=== PATIENT | female | born 1940 | race Caucasian/White ===

== ENCOUNTER 2020-07-24 21:05 | Emergency (ER) | payer OTHER, SELFPAY ==
[2020-07-24] VITALS (14 sets, daily range): BP systolic 132–204; BP diastolic 60–93; PULSE 60–63; RESP 15–24; TEMP 36.7; O2SAT 95–98; BMI 25.0
--- NOTE | 2020-07-24 21:02 | DI.RAD.S_ITS ---
PROCEDURE: XR CHEST 1V INDICATIONS: Chest pain TECHNIQUE: One view of the chest was acquired. COMPARISON: None. FINDINGS: Surgical changes and devices: 2 lead cardiac pacing device with leads in appropriate position.. Lungs and pleura: Lungs are clear. No pleural effusions or pneumothorax. Mediastinum: Mediastinal contours appear normal. Heart size is normal. Bones and chest wall: No suspicious bony lesions. Overlying soft tissues appear unremarkable. IMPRESSION: No acute finding. Dictated by: Bob Rao M.D. on 07/24/2020 at 21:45 Approved by: Bob Rao M.D. on 07/24/2020 at 21:46
--- NOTE | 2020-07-24 21:29 | ED_ITS ---
HPI - Chest Pain General Chief Complaint: Chest Pain Stated Complaint: CP Source: patient Mode of arrival: EMS Limitations: no limitations History of Present Illness HPI narrative: Patient experience 3 hours ago epigastric and substernal chest pressure. No nausea or vomiting no dyspnea no sweating. No numbness tingling weakness no back pain no syncope. EMS arrived. Patient already took aspirin prior to arrival. Has not had her metoprolol 37.5 mg yet. Her evening dose. Patient did have complete resolution of chest pressure after EMS gave nitroglycerin sublingual. Patient sees Dr. Billy, cardiology with [place] for bradycardia. Patient has pacemaker. No previous heart catheterization or stress test in the past. Related Data Home Medications Medication Instructions Recorded Confirmed aspirin mg PO HS #0 03/19/17 VITAMIN D (Vitamin D3) 2,000 iu PO QDAY #0 12/18/17 cyanocobalamin (vitamin B-12) 1,000 mcg PO QDAY #0 12/18/17 [Vitamin B-12] famotidine 20 mg PO QDAYP PRN #0 12/18/17 metoprolol tartrate 25 mg PO BID #0 12/18/17 Allergies Allergy/AdvReac Type Severity Reaction Status Date / Time No Known Drug Allergies Allergy Verified 07/24/20 21:14 Review of Systems Review of Systems Narrative: GENERAL: Denies chills, fatigue, malaise, fever, sweats. HEENT: Denies sinus pain, ear pain, sore throat, difficulty swallowing, dizziness. RESPIRATORY: Denies dyspnea, cough, wheezing, hemoptysis, sputum. CARDIOVASCULAR: Complains of chest pain, denies palpitations, orthopnea, edema, GASTROINTESTINAL: Denies nausea, vomiting, abdominal pain, diarrhea, constipation, melena. : Denies dysuria, frequency, incontinence, hematuria, urinary retention. MUSCULOSKELETAL: denies weakness, joint pain, or bony pain SKIN: Denies rash, skin lesions NEUROLOGIC: Denies weakness, headache, numbness, change in speech, confusion, seizures, incoordination. PSYCHIATRIC: No concerning psychosocial issues. ROS Unobtainable: All systems reviewed & are unremarkable except as noted in HPI and below Patient History Social History Smoking Status: Unknown if ever smoked Smoking Status: Unknown if ever smoked alcohol intake frequency: holidays/special occasions only Substance Use Type: does not use Exam Narrative Exam Narrative: GENERAL: patient appears stated age. Well-nourished, well- developed patient, in no distress, not toxic HEAD: Atraumatic. Normocephalic. EYES: Pupils equal round and reactive. Extraocular motions intact. No scleral icterus. No injection or drainage. ENT: Nose without bleeding, purulent drainage. Throat without erythema, tonsillar hypertrophy or exudate. Airway patent. NECK: Trachea midline. Non tender CARDIOVASCULAR: Regular rate and rhythm without murmurs, gallops, or rubs. RESPIRATORY: Clear to auscultation. Breath sounds equal bilaterally. No wheezes, rales, or rhonchi. GASTROINTESTINAL: Abdomen soft, non-tender, nondistended. EXTREMITIES: No edema or joint tenderness. BACK: Nontender without deformity or crepitance. No flank tenderness. NEURO: AOx4. SKIN: No rash or erythema of visible areas PSYCH: Not anxious, is cooperative Initial Vital Signs Initial Vital Signs: Vital Signs Temperature 98.0 F 07/24/20 21:10 Pulse Rate 60 07/24/20 21:10 Respiratory Rate 20 07/24/20 21:10 Blood Pressure 204/93 H 07/24/20 21:10 Pulse Oximetry 97 07/24/20 21:10 Course Orders Ordered: ED Orders 07/24/20 21:02 XR chest 1V Stat EKG-12 Lead Stat 07/24/20 21:16 Complete Blood Count AUTO DIFF Stat Comprehensive Metabolic Panel Stat Lipase Stat Partial Thromboplastin Time Stat Prothrombin Time INR Stat Troponin & CK Cardiac Panel Stat 07/24/20 23:05 COVID19 -ED/INPAT/OR/L&D Stat Discontinued Medications Metoprolol Succinate (Toprol Xl) 25 mg PO NOW ONE Stop: 07/24/20 21:30 Last Admin: 07/24/20 21:47 Dose: 25 mg Documented by: LEILA Reevaluation(s) Reevaluation #1: Continues to be chest pain free. Blood pressure improved. 132/60 Time: 00:12 Consultations Consultation #1: Spoke with Dr. Sanchez, cardiology on-call for Dr. Billy, patient to be transferred to [facility]. Time: 10:45 Consultation #2: Spoke with Dr. Watkins, will accept patient Time: 11:31 Vital Signs Vital signs: Vital Signs - 8 hr 07/24/20 21:10 07/24/20 21:16 07/24/20 21:18 Temperature 98.0 F Pulse Rate 60 61 Respiratory Rate 20 18 21 Blood Pressure 204/93 H 204/93 H Pulse Oximetry 97 98 07/24/20 21:22 07/24/20 21:30 07/24/20 21:31 Temperature Pulse Rate 60 60 60 Respiratory Rate 24 16 16 Blood Pressure 187/79 H 183/82 H Pulse Oximetry 96 97 97 07/24/20 21:47 07/24/20 22:00 07/24/20 22:01 Temperature Pulse Rate 60 60 60 Respiratory Rate 15 15 Blood Pressure 183/82 H 149/68 H Pulse Oximetry 96 07/24/20 22:30 07/24/20 22:35 07/24/20 23:00 Temperature Pulse Rate 60 60 60 Respiratory Rate 15 16 Blood Pressure 142/64 H 142/64 H 152/69 H Pulse Oximetry 95 97 07/24/20 23:30 07/24/20 23:31 07/25/20 00:00 Temperature Pulse Rate 60 63 61 Respiratory Rate 16 18 21 Blood Pressure 132/60 141/63 H Pulse Oximetry 96 96 96 MDM - Chest Pain Lab Data Attestation: I reviewed the patient's lab results. Result diagrams: 07/24/20 21:16 07/24/20 21:16 Labs: Lab Results 07/24/20 07/24/20 07/24/20 Range/Units 21:16 21:16 21:16 WBC 9.3 (4.5-11.0) X10^3/uL RBC 4.80 (4.0-5.2) X10^6/uL Hgb 13.4 (12.0-16.0) g/dL Hct 41.0 (36-46) % MCV 85.4 (80-100) fL MCH 27.9 (26-34) PG MCHC 32.7 (30-36) % RDW 13.7 (11.6-14.8) % Plt Count 291 (150-400) X10^3/uL Neut % (Auto) 75.6 H (50-75) % Lymph % (Auto) 16.8 L (25-40) % [place] % (Auto) 6.1 (3-14) % Eos % (Auto) 1.1 L (2-4) % Baso % (Auto) 0.4 (0-2) % Neut # (Auto) 7000 (6310-7332) /uL Lymph # (Auto) 1600 (3110-6043) /uL [place] # (Auto) 600 (0-900) /uL Eos # (Auto) 100 (0-450) /uL Baso # (Auto) 0 (0-100) /uL PT 11.0 (10.1-12.7) SECONDS INR 1.0 (0.9-1.3) APTT 28 (26.4-36.2) SECONDS Sodium 138 (137-145) mmol/L Potassium 4.1 (3.4-5.1) mmol/L Chloride 101 (98-107) mmol/L Carbon Dioxide 29 (22-32) mmol/L BUN 20 H (7-17) mg/dL Creatinine 1.23 H (0.52-1.04) mg/dL Estimated GFR 42.2 L (>60) mL/min BUN/Creatinine Ratio 16.3 (6-22) Glucose 121 H (80-110) mg/dL Calcium 9.7 (8.4-10.2) mg/dL Total Bilirubin 0.4 (0.2-1.3) mg/dL AST 19 (14-36) IU/L ALT 13 (<35) IU/L Alkaline Phosphatase 84 (38-126) U/L Total Creatine Kinase 59 (30-135) U/L CK-MB (CK-2) TNP CK-MB (CK-2) Rel Index TNP Troponin I < 0.012 (0.01-0.034) ng/mL Total Protein 7.5 (6.3-8.2) g/dL Albumin 4.3 (3.5-5.0) g/dL Globulin 3.2 (1.7-4.1) g/dL Albumin/Globulin Ratio 1.3 (1.0-2.8) Lipase 65 (23-300) U/L COVID-19 PCR (Negative) 07/24/20 Range/Units 23:05 WBC (4.5-11.0) X10^3/uL RBC (4.0-5.2) X10^6/uL Hgb (12.0-16.0) g/dL Hct (36-46) % MCV (80-100) fL MCH (26-34) PG MCHC (30-36) % RDW (11.6-14.8) % Plt Count (150-400) X10^3/uL Neut % (Auto) (50-75) % Lymph % (Auto) (25-40) % [place] % (Auto) (3-14) % Eos % (Auto) (2-4) % Baso % (Auto) (0-2) % Neut # (Auto) (6667-1678) /uL Lymph # (Auto) (3021-7907) /uL [place] # (Auto) (0-900) /uL Eos # (Auto) (0-450) /uL Baso # (Auto) (0-100) /uL PT (10.1-12.7) SECONDS INR (0.9-1.3) APTT (26.4-36.2) SECONDS Sodium (137-145) mmol/L Potassium (3.4-5.1) mmol/L Chloride (98-107) mmol/L Carbon Dioxide (22-32) mmol/L BUN (7-17) mg/dL Creatinine (0.52-1.04) mg/dL Estimated GFR (>60) mL/min BUN/Creatinine Ratio (6-22) Glucose (80-110) mg/dL Calcium (8.4-10.2) mg/dL Total Bilirubin (0.2-1.3) mg/dL AST (14-36) IU/L ALT (<35) IU/L Alkaline Phosphatase (38-126) U/L Total Creatine Kinase (30-135) U/L CK-MB (CK-2) CK-MB (CK-2) Rel Index Troponin I (0.01-0.034) ng/mL Total Protein (6.3-8.2) g/dL Albumin (3.5-5.0) g/dL Globulin (1.7-4.1) g/dL Albumin/Globulin Ratio (1.0-2.8) Lipase (23-300) U/L COVID-19 PCR Negative (Negative) Imaging Data Chest x-ray: Radiologist's Impression: [address] [address] XRay Report Signed Patient: Maxine Walsh CMR#: [id number] : 2Acct:[id number] Age/Sex: 80 / FDate of Service: 07/24/20 Loc: ED Accession Number: [id number] Procedure: XR chest 1V Ordering Provider: Ac Olsen MD PROCEDURE: XR CHEST 1V INDICATIONS: Chest pain TECHNIQUE: One view of the chest was acquired. COMPARISON: None. FINDINGS: Surgical changes and devices: 2 lead cardiac pacing device with leads in appropriate position.. Lungs and pleura: Lungs are clear. No pleural effusions or pneumothorax. Mediastinum: Mediastinal contours appear normal. Heart size is normal. Bones and chest wall: No suspicious bony lesions. Overlying soft tissues appear unremarkable. IMPRESSION: No acute finding. Dictated by: Bob Rao M.D. on 07/24/2020 at 21:45 Approved by: Bob Rao M.D. on 07/24/2020 at 21:46 ECG Data Attestation: I personally reviewed and interpreted this ECG as follows: Interpretation: Atrial paced rhythm. Ventricular rate 60. No ST elevation. MDM Narrative Medical decision making narrative: Likely unstable angina. Chest pain free on arrival here. Will need stress test. Had request of Cardiology transfer to [place]. Reviewed with patient and she agrees. No stress test available here at this facility on the weekend Discharge Plan Departure Patient Disposition: [facility] Clinical Impression: Unstable angina pectoris Discharge Date/Time: 07/25/20 00:30 Prescriptions: No Action aspirin 325 MG tablet,delayed release (DR/EC) PO HS Qty: 0 RF: 0 cyanocobalamin (vitamin B-12) [Vitamin B-12] 500 MCG tablet 1,000 mcg PO QDAY Qty: 0 RF: 0 metoprolol tartrate 25 MG tablet 25 mg PO BID Qty: 0 RF: 0 famotidine 20 MG tablet 20 mg PO QDAYP PRNQty: 0 RF: 0 VITAMIN D (Vitamin D3) 2,000 iu PO QDAY Qty: 0 RF: 0 Referrals: Dario Allen MD [Primary Care Provider] -
[2020-07-24 21:30] LABS: Add Manual Diff / Slide Review NO; Basophils Absolute Auto 0 /uL (0-100); Basophils Percent Auto 0.4 % (0-2); Eosinophils Absolute Auto 100 /uL (0-450); Eosinophils Percent Auto 1.1 % (2-4); Hemoglobin 13.4 g/dL (12.0-16.0); Lymphocytes Absolute Auto 1600 /uL (1100-4500); Lymphocytes Percent Auto 16.8 % (25-40); Mean Corpuscular HGB Conc 32.7 % (30-36); Mean Corpuscular Hemoglobin 27.9 PG (26-34); Mean Corpuscular Volume 85.4 fL (80-100); Monocytes Absolute Auto 600 /uL (0-900); Monocytes Percent Auto 6.1 % (3-14); Neutrophils Absolute Auto 7000 /uL (1500-7000); Neutrophils Percent Auto 75.6 % (50-75); Platelet Count 291 X10^3/uL (150-400); Red Cell Distribution Width 13.7 % (11.6-14.8); White Blood Cell Count 9.3 X10^3/uL (4.5-11.0)
[2020-07-24 21:35] LABS: PTT Partial Thromboplastin Tim 28 SECONDS (26.4-36.2)
[2020-07-24 21:38] LABS: Alanine Aminotransferase 13 IU/L (<35); Albumin 4.3 g/dL (3.5-5.0); Albumin Globulin Ratio 1.3 (1.0-2.8); Alkaline Phosphatase 84 U/L (38-126); Aspartate Aminotransferase 19 IU/L (14-36); BUN Creatinine Ratio 16.3 (6-22); Bilirubin Total 0.4 mg/dL (0.2-1.3); Blood Urea Nitrogen 20 mg/dL (7-17); Calcium 9.7 mg/dL (8.4-10.2); Carbon Dioxide 29 mmol/L (22-32); Chloride 101 mmol/L (98-107); Creatine Kinase 59 U/L (30-135); Estimated Glomerular Filt Rate 42.2 mL/min (>60); Globulin 3.2 g/dL (1.7-4.1); Glucose 121 mg/dL (80-110); HEMOLYSIS < 15 (0-50); Lipase 65 U/L (23-300); Potassium 4.1 mmol/L (3.4-5.1); Sodium 138 mmol/L (137-145); Total Protein 7.5 g/dL (6.3-8.2)
[2020-07-24] MEDS: METOPROLOL ER 25 MG TABLET PO (21:47)
[2020-07-24 21:50] LABS: Troponin I < 0.012 ng/mL (0.01-0.034)
[2020-07-24 23:34] LABS: COVID19 -Nasal RAPID Negative (Negative)
[2020-07-25] VITALS: BP 141/63; PULSE 61; RESP 21; O2SAT 96
== END 2020-07-25 00:30 | disposition short-term general hospital (02) ==
PROVIDERS: Emergency Provider Emergency Medicine; Family Provider Internal Medicine; PCP Internal Medicine
DX: I20.0 Unstable angina (principal); R10.13 Epigastric pain
CPT/HCPCS: 36415; 71045; 80053; 82550; 83690; 84484; 85025; 85610; 85730; 87635; 93005; 93010; 99284